=== PATIENT | male | born 1955 | race Caucasian/White ===

== ENCOUNTER 2021-08-17 12:24 | Emergency (ER) | payer MEDICARE, SELFPAY ==
[2021-08-17 12:30] VITALS: BP 131/74; PULSE 106; RESP 20; TEMP 36.6; O2SAT 100
--- NOTE | 2021-08-17 12:40 | ED.ABDPAIN ---
HPI - Abdominal Pain General Chief Complaint: Abdominal Pain Stated Complaint: diverticulitis Time Seen by Provider: 08/17/21 12:41 Source: patient and RN notes reviewed Mode of arrival: ambulatory Limitations: no limitations History of Present Illness HPI narrative: 66-year-old male presented for complaint of mid lower abdominal pain, onset about 4 days ago. He rates the pain 3 out of 10. Pain is described as an ache. He denies associated nausea, vomiting, diarrhea, constipation, hematochezia, melena. He endorses pain feels better after he urinates. He states he has had history of diverticulitis in the past, stating it usually runs about 7 days but he has not had a flareup in about 7 years. He has taken Aleve for pain and increased his water intake. He says he gets a colonoscopy every 5 years and he should be due at the end of this year. He attributes his sweats today to being in the hot tub prior to arrival. Related Data Home Medications Medication Instructions Recorded Confirmed atorvastatin 40 mg PO DAILY 08/17/21 08/17/21 Allergies Allergy/AdvReac Type Severity Reaction Status Date / Time No Known Allergies Allergy Verified 08/17/21 12:40 Review of Systems Review of Systems: CONSTITUTIONAL: Denies body aches, fever, chills EYES: Denies visual changes ENT: Denies rhinorrhea, congestion CARDIOVASCULAR: Denies chest pain, palpitations, or edema. RESPIRATORY: Denies cough or dyspnea. GASTROINTESTINAL: Endorses abdominal pain, Denies hematochezia, melena, hematemesis, nausea, vomiting, diarrhea. GENITOURINARY: Denies dysuria, hematuria, or CVA tenderness. SKIN: Denies rash, itching, or wounds. MUSCULOSKELETAL: Denies back pain, joint pain, or myalgia. NEUROLOGIC: Denies headache, numbness, tingling, or weakness. PSYCH: Denies mood change All systems reviewed & are unremarkable except as noted in HPI and below PMFSH Comments At time of signature, I have reviewed and agree with nursing past medical, surgical, social and family history unless otherwise noted. Please see nursing chart for further information. There is no relevant family history pertinent to the presenting complaint Exam Narrative: GENERAL: ill appearing, sweating, no acute distress. HEAD: Normocephalic, atraumatic. EYES: EOMI. Conjunctivae normal. ENT: Mucous membranes pink and moist. NECK: Normal AROM. Supple. CHEST: No respiratory distress. Clear to auscultation. HEART: Regular rate and rhythm. No murmur appreciated. Normal peripheral pulses. ABDOMEN: Tender mid lower and left lower abdomen; No guarding, rebound tenderness, ventral hernia noted; abd soft, nondistended, normal active bowel sounds. MUSCULOSKELETAL: No bony tenderness. EXTREMITIES: Normal range of motion. No edema. SKIN: Warm, dry, no rash. Capillary refill normal. Normal skin turgor. NEURO: No focal deficits. Alert and oriented x3. Gait steady. PSYCH: Normal affect. Course Course Emergency Course: Patient is aware of diagnosis, understands and agrees to treatment plan. Anticipatory guidance given. Portions of this record may have been created with voice recognition software Level of Care: Express Care Visit Vital Signs Vital signs: Vital Signs Temperature 97.9 F 08/17/21 12:30 Pulse Rate 106 H 08/17/21 12:30 Respiratory Rate 20 08/17/21 12:30 Blood Pressure 131/74 08/17/21 12:30 Pulse Oximetry 100 08/17/21 12:30 Temperature 97.9 F 08/17/21 12:30 Pulse Rate 106 H 08/17/21 12:30 Respiratory Rate 20 08/17/21 12:30 Blood Pressure 131/74 08/17/21 12:30 Pulse Oximetry 100 08/17/21 12:30 Transfer Transfered to: [facility] Transportation: Other (Private vehicle) Transfer rationale: Pt is agreeable to transfer to ER for further evaluation of the abdominal pain. Requests transfer to [facility] via private vehicle. Risks of transportation reviewed with pt including injury, worsening of condition and
== END 2021-08-17 13:02 | disposition short-term general hospital (02) ==
PROVIDERS: Emergency Provider Nurse Practitioner Family; PCP Internal Medicine
DX: R10.30 Lower abdominal pain, unspecified (principal)
CPT/HCPCS: 99212; G0463